=== PATIENT | female | born 1985 | race Caucasian/White ===

== ENCOUNTER 2016-08-27 21:12 | Emergency (ER) | payer OTHER ==
[~2016-08-27] VITALS: Ht 167.6 cm; Wt 75.0 kg
[2016-08-27 21:18] VITALS: Ht 167.6 cm; Wt 75.0 kg
[2016-08-27] MEDS ORDERED: METHYLPRED. NA SUCC 1,000 MG in DEXTROSE 5% 50 ML IVPB ONE (21:30)
[2016-08-27] MEDS ORDERED: MESA0.372 PO (21:59)
[2016-08-27 22:28] VITALS: BP 114/65; PULSE 72; RESP 18
--- NOTE | 2016-08-27 22:36 | ERD ---
ER Documentation Chief Complaint Date/Time DATE: 08/27/16 TIME: 22:33 Chief Complaint right eye vision visual loss x 3 days, saw opthalmologist -"opticneuritis" HPI 31-year-old female with recent diagnosis of optic neuritis of the right eye. The patient is having difficulty receiving home health care to provide IV dose of 1 g of Solu-Medrol 3 days. The patient has a prescription from her neurologist, recent MRI. Patient states stable symptoms. ROS All systems reviewed and are negative except as per history of present illness. Medications Home Meds Reported Medications Mesalamine* (Apriso*) 0.375 Gm Cap.sr.24h, 1.5 GM PO DAILY, CAP 08/27/16 Allergies Allergies: Coded Allergies: Penicillins (Verified Allergy, Unknown, 08/27/16) PMhx/Soc Medical and Surgical Hx: pt denies Surgical Hx Hx Alcohol Use: Yes (socially ) Hx Substance Use: No Hx Tobacco Use: No Smoking Status: Never smoker FmHx Family History: No diabetes Physical Exam Vitals Vital Signs Date Time Temp Pulse Resp B/P Pulse Ox O2 Delivery O2 Flow Rate FiO2 08/27/16 22:28 72 18 114/65 99 Room Air 08/27/16 21:18 98.5 80 20 114/74 99 Physical Exam General: Well developed, well nourished, no acute distress Head: Normocephalic, atraumatic. Eyes: EOM intact ENT: Moist mucous membranes Neck: Full ROM Respiratory: No respiratory distress Cardiovascular: Good capillary refil Abdominal: Nondistended : Deferred MSK: No edema, no unilateral swelling, 5/5 strength Neurologic: Alert and oriented, moving all extremities, normal speech, steady gait Skin: No rash Psych: Normal mood Results 24 hrs Current Medications Medications (Trade) Dose Ordered Sig/Kateryna Route PRN Reason Start Time Stop Time Status Last Admin Dose Admin Methylprednisolone Sodium Succinate/ Dextrose (Solu-Medrol/D5W) 50 ml @ 100 mls/hr ONCE ONCE IVPB 08/27/16 21:30 08/27/16 21:59 DC 08/27/16 21:59 Procedures/MDM The patient presents for infusion of 1 g of Solu-Medrol secondary to diagnosis of optic neuritis. She shows me a prescription, recent MRI imaging. The patient is having difficulty with home health care nursing. The patient was given 1 g of Solu-Medrol here in the emergency room. She was advised that she may return for repeat dosing if she cannot facilitate home health care at this time. The patient will be discharged. Departure Diagnosis: Primary Impression: Optic neuritis Condition: Stable Referrals: [facility] YOU HAVE RECEIVED A MEDICAL SCREENING EXAM AND THE RESULTS INDICATE THAT YOU DO NOT HAVE A CONDITION THAT REQUIRES URGENT TREATMENT IN THE EMERGENCY DEPARTMENT. FURTHER EVALUATION AND TREATMENT OF YOUR CONDITION CAN WAIT UNTIL YOU ARE SEEN IN YOUR DOCTORS OFFICE WITHIN THE NEXT 1-2 DAYS. IT IS YOUR RESPONSIBILITY TO MAKE AN APPOINTMENT FOR FOLOW-UP CARE. IF YOU HAVE A PRIMARY DOCTOR --you should call your primary doctor and schedule an appointment IF YOU DO NOT HAVE A PRIMARY DOCTOR YOU CAN CALL OUR PHYSICIAN REFERRAL HOTLINE AT IF YOU CAN NOT AFFORD TO SEE A PHYSICIAN YOU CAN CHOSE FROM THE FOLLOWING [facility] [address] [facility] [address] [facility]. [facility] [address] [facility] [address] [facility] [address] [facility] [facility] [address] [address] [facility] YOU HAVE RECEIVED A MEDICAL SCREENING EXAM AND THE RESULTS INDICATE THAT YOU DO NOT HAVE A CONDITION THAT REQUIRES URGENT TREATMENT IN THE EMERGENCY DEPARTMENT. FURTHER EVALUATION AND TREATMENT OF YOUR CONDITION CAN WAIT UNTIL YOU ARE SEEN IN YOUR DOCTORS OFFICE WITHIN THE NEXT 1-2 DAYS. IT IS YOUR RESPONSIBILITY TO MAKE AN APPOINTMENT FOR FOLOW-UP CARE. IF YOU HAVE A PRIMARY DOCTOR --you should call your primary doctor and schedule and appointment IF YOU DO NOT HAVE A PRIMARY DOCTOR YOU CAN CALL OUR PHYSICIAN REFERRAL HOTLINE AT . IF YOU CAN NOT AFFORD TO SEE A PHYSICIAN YOU CAN CHOSE FROM THE FOLLOWING [facility] INSTITUTIONS: [facility] [address] [place] [address] [facility] [address] [place] [address] [address] Additional Instructions: Call your primary care doctor TOMORROW for an appointment during the next 1 WEEK.Tell the secretary administrative assistant that you were referred from this facility.See the doctor sooner or return here if your condition worsens before your appointment time. YASMEEN SHEPPARD MD Aug 27, 2016 22:35
== END 2016-08-27 22:39 | disposition home or self-care (01) ==
LOC: E/R 21:12
DX: H46.9 Unspecified optic neuritis (principal)
CPT/HCPCS: 96374; 99284; J2930

== ENCOUNTER 2016-08-28 21:09 | Emergency (ER) | payer OTHER ==
[~2016-08-28] VITALS: Ht 167.6 cm; Wt 75.0 kg
[~2016-08-28 21:09] MED LIST: MESA0.372 PO
[2016-08-28 21:24] VITALS: Ht 167.6 cm; Wt 75.0 kg
[2016-08-28] MEDS ORDERED: SOD CHLORIDE 0.9% 500 ML IV STA (21:26)
[2016-08-28] MEDS ORDERED: METHYLPRED. NA SUCC 1,000 MG in DEXTROSE 5% 50 ML IVPB ONE (21:30)
--- NOTE | 2016-08-28 22:17 | ERD ---
ER Documentation Chief Complaint Date/Time DATE: 08/28/16 TIME: 22:15 Chief Complaint here for second dose of Solumedrol 1g IV for optic neuritis (2 of 3) HPI This is a 31-year-old female who presents to the emergency room for administration of IV medications. This patient was recently diagnosed with optic neuritis. She was told that she needs 1 g of Solu-Medrol every day for 3 days. This is the day 2 of 3. She is unable to get home health nurse secondary to insurance issues. The patient has no complaints of blurred vision at this time her pain in her eye. She was seen in the emergency room last night for the same. She is in the process of getting neuro-ophthalmology follow -up. ROS All systems reviewed and are negative except as per history of present illness. Medications Home Meds Reported Medications Mesalamine* (Apriso*) 0.375 Gm Cap.sr.24h, 1.5 GM PO DAILY, CAP 08/27/16 Allergies Allergies: Coded Allergies: Penicillins (Verified Allergy, Unknown, 08/28/16) PMhx/Soc Hx Alcohol Use: Yes (socially ) Hx Substance Use: No Hx Tobacco Use: No Physical Exam Vitals Vital Signs Date Time Temp Pulse Resp B/P Pulse Ox O2 Delivery O2 Flow Rate FiO2 08/28/16 21:24 98.4 78 20 116/73 99 Physical Exam Const: No acute distress Head: Atraumatic Eyes: Normal Conjunctiva ENT: Normal External Ears, Nose and Mouth. Neck: Full range of motion..~ No meningismus. Resp: Clear to auscultation bilaterally Cardio: Regular rate and rhythm, no murmurs Abd: Soft, non tender, non distended. Normal bowel sounds Skin: No petechiae or rashes Back: No midline or flank tenderness Ext: No cyanosis, or edema Neur: Awake and alert Psych: Normal Mood and Affect Results 24 hrs Current Medications Medications (Trade) Dose Ordered Sig/Kateryna Route PRN Reason Start Time Stop Time Status Last Admin Dose Admin Methylprednisolone Sodium Succinate 1000 mg/Dextrose 50 ml @ 100 mls/hr ONCE ONCE IVPB 08/28/16 21:30 08/28/16 21:59 DC 08/28/16 21:44 Sodium Chloride (NS) 500 ml @ 500 mls/hr Q1H STAT IV 08/28/16 21:26 08/28/16 21:27 DC Procedures/MDM This 31-year-old female has a history of optic neuritis and is on day 2 of 3 of a 1 g per day Solu-Medrol regimen. She has been unable to get healthcare at home due to insurance reasons. She is pending neuro-ophthalmology follow-up. She did receive 1 g of Solu-Medrol in the emergency room. No adverse outcome or side effects from medication. She is hemodynamically stable be discharged home at this time Departure Diagnosis: Primary Impression: Optic neuritis Condition: Stable MENDEL ALFARO DO Aug 28, 2016 22:17
== END 2016-08-28 22:24 | disposition home or self-care (01) ==
LOC: E/R 21:09
DX: H46.9 Unspecified optic neuritis (principal)
CPT/HCPCS: 96374; J2930; J7040

== ENCOUNTER 2016-08-29 21:33 | Emergency (ER) | payer OTHER ==
[~2016-08-29] VITALS: Ht 160 cm; Wt 64.0 kg
[2016-08-29 21:35] VITALS: Ht 160 cm; Wt 64.0 kg
--- NOTE | 2016-08-29 21:44 | ERA ---
ER Documentation Chief Complaint Date/Time DATE: 08/29/16 TIME: 21:44 Chief Complaint steroid infusion HPI The patient is a 31-year-old female, presenting to the ER for Solu-Medrol infusion. She was recently diagnosed with right optic neuritis by neuro- [facility] who order Solu-Medrol 1 g IV for 3 days. She has received the medication for the last 2 days, she is here for her last dose. She is going to see her neurologist tomorrow. She has minimal effusion on the right eye, denies headache, neck pain, chest pain, dyspnea, abdominal pain, vomiting. She does not smoke, drinks socially Past medical history: None Past surgical history: Left inguinal herniorrhaphy ROS All systems reviewed and are negative except as per history of present illness. Medications Home Meds Reported Medications Mesalamine* (Apriso*) 0.375 Gm Cap.sr.24h, 1.5 GM PO DAILY, CAP 08/27/16 Allergies Allergies: Coded Allergies: Penicillins (Verified Allergy, Unknown, 08/28/16) PMhx/Soc Hx Alcohol Use: Yes (socially ) Hx Substance Use: No Hx Tobacco Use: No Physical Exam Vitals Vital Signs Date Time Temp Pulse Resp B/P Pulse Ox O2 Delivery O2 Flow Rate FiO2 08/29/16 23:51 98.0 76 18 111/69 100 Room Air 08/29/16 21:35 97.6 102 17 109/70 99 Physical Exam Const: No acute distress. Head: Atraumatic. Eyes: Normal Conjunctiva. ENT: Normal External Ears, Nose and Mouth. Neck: Full range of motion. No meningismus. Resp: Clear to auscultation bilaterally. Cardio: Regular rate and rhythm, no murmurs. Abd: Soft, non distended, normal bowel sounds, non tender. Skin: No petechiae or rashes. Back: No midline or flank tenderness. Ext: No cyanosis, or edema. Neur: Awake and alert. No focal deficit Psych: Normal Mood and Affect. Results 24 hrs Current Medications Medications (Trade) Dose Ordered Sig/Kateryna Route PRN Reason Start Time Stop Time Status Last Admin Dose Admin Methylprednisolone Sodium Succinate/ Dextrose (Solu-Medrol/D5W) 50 ml @ 100 mls/hr ONCE ONCE IVPB 08/29/16 22:00 08/29/16 22:29 DC 08/29/16 22:53 Procedures/MDM MEDICAL MAKING DECISION: The patient is being treated with Solu-Medrol IV as requested by her [facility] for right optic neuritis Departure Diagnosis: Primary Impression: Encounter for medication management Condition: Good Comments I discussed the findings with the patient. I advised the patient to follow-up with her neurologist tomorrow as scheduled , and return if any concern. RAVIN HERNANDEZ MD Aug 29, 2016 21:44
[2016-08-29] MEDS ORDERED: METHYLPRED. NA SUCC 1,000 MG in DEXTROSE 5% 50 ML IVPB ONE (22:00)
[2016-08-29 23:51] VITALS: BP 111/69; PULSE 76; RESP 18; TEMP 98
== END 2016-08-29 23:53 | disposition home or self-care (01) ==
LOC: E/R 21:33
DX: Z51.81 Encounter for therapeutic drug level monitoring (principal); Z79.899 Other long term (current) drug therapy
CPT/HCPCS: 96374; J2930